=== PATIENT | male | born 1980 | race Caucasian/White ===

== ENCOUNTER 2024-06-19 22:25 | Emergency (ER) | payer OTHER ==
[2024-06-19] MEDS ORDERED: NA CHLORIDE 0.9% 1,000 ML ONE (23:42)
[2024-06-20 00:17] LABS: Absolute Eosinophils 0.6 K/uL (0-0.5); Absolute Lymphocytes (CBC) 1.7 K/uL (0.7-4.9); Absolute Monocytes 1.1 K/uL (0.1-1.3); Absolute Neutrophil 6.5 K/uL (1.8-8.0); Basophils % 0.1 % (0-1.3); Eosinophils % 6.1 % (0-4.4); Hemoglobin 16.1 g/dL (13.6-17.9); Lymphocytes % 16.8 % (15.3-44.8); MCH 30.3 pg (27.0-35.0); MCHC 33.4 g/dL (32.0-36.0); MCV 90.6 fL (80-100); MPV 9.8 fL (7.6-11.3); Monocytes % 11.5 % (3.3-12.3); Neutrophils % 65.5 % (41.7-73.7); Nucleated Red Blood Cells % 0.4 % (0-0); Platelets 231 thou/uL (152-406); Red Cell Distribution Width 14.7 % (12.1-15.2)
[2024-06-20 00:20] LABS: PT Prothrombin Time 11.5 SECONDS (9.4-12.5); PTT, Activated Partial Thromb 32.9 SECONDS (24.3-36.9); Protime INR 1.03
[2024-06-20 00:27] LABS: Albumin 3.3 g/dL (3.4-5.0); Albumin/Globulin Ratio 0.8 (1.1-1.8); Bilirubin Total 1.2 mg/dL (0.2-1.0); Globulin 3.9 g/dL (2.3-3.5); Protein, Total 7.2 g/dL (6.4-8.2)
[2024-06-20 00:34] LABS: Specific Gravity 1.028 (1.005-1.030); Sqamous Epithelial None Seen /HPF (None Seen); Urine Bacteria None Seen /HPF (<20); Urine Bilirubin NEGATIVE (Negative); Urine Blood Negative (Negative); Urine Clarity Clear (Clear); Urine Color Yellow (Yellow); Urine Culture Reflex Order NOT NEEDED; Urine Glucose NEGATIVE (Negative); Urine Ketones NEGATIVE (Negative); Urine Microscopic Reflex YN ORDER UMIC; Urine Mucus Slight /HPF (None Seen); Urine Nitrite NEGATIVE (Negative); Urine Protein TRACE (Negative); Urine RBC None Seen /HPF (None Seen); Urine Urobilinogen Normal (Normal); Urine WBC <5 /HPF (<5); Urine pH 6.5 (5.0-7.0)
[2024-06-20] MEDS ORDERED: MORPHINE 4 MG/ML SYR ONE ×2 (00:51→03:20)
[2024-06-20] MEDS ORDERED: ONDANSETRON 4 MG/2 ML VIAL ONE ×2 (00:51→03:19)
--- NOTE | 2024-06-20 02:28 | ER ---
Nurse's Notes [facility] Name: Miguel Rosado Age: 43 yrs Sex: Male : 1980 Arrival Date: 06/19/2024 Time: 22:25 Bed 16 Private MD: Diagnosis: Small Bowel Obstruction;Recent Cholecystectomy w/ Dr. Wise Presentation: 06/19 22:46 Chief complaint: Patient states: Had a cholecystectomy at [facility] by ss Dr. Wise on Wednesday. Pt reports the next day he has been experiencing abdominal bloating, gas pain and constipation and feels as if he may have some kind of blockage. Also reports low grade fever. 600 mg Ibuprofen last taken at 2029. Coronavirus screen: Client denies travel out of the [place] in the last 14 days. Ebola Screen: Patient denies exposure to infectious person. Patient denies travel to an Ebola-affected area in the 21 days before illness onset. Initial Sepsis Screen: Does the patient meet any 2 criteria? No. Patient's initial sepsis screen is negative. Does the patient have a suspected source of infection? No. Patient's initial sepsis screen is negative. Risk Assessment: Do you want to hurt yourself or someone else? Patient reports no desire to harm self or others. Onset of symptoms was June 17, 2024. 22:46 Method Of Arrival: Ambulatory ss 22:46 Acuity: NAINA 3 ss Triage Assessment: 22:48 General: Appears uncomfortable, Behavior is calm, cooperative. Pain: Complains of pain ss in abdomen Pain currently is 3 out of 10 on a pain scale. Neuro: Level of Consciousness is awake, alert, obeys commands, Oriented to person, place, time, situation. Respiratory: Airway is patent Respiratory effort is even, unlabored, Respiratory pattern is regular, symmetrical. GI: Abdomen is round distended. GI: Reports bloating, constipation, diarrhea, gaseousness. Derm: Skin is intact, is healthy with good turgor, Skin is pink, warm \T\ dry. normal. Historical: - Allergies: 22:48 No Known Allergies; ss - Home Meds: 22:48 Omeprazole [Active]; allopurinol Oral [Active]; ss - PMHx: 22:48 Gout; GERD; ss - PSHx: 22:48 Cholecystectomy; back sx; ss - Immunization history:: Client reports receiving the 2nd dose of the Covid vaccine. - Infectious Disease History:: Denies. - Social history:: Smoking status: Patient denies any tobacco usage or history of. Screenin/10 00:04 [facility] ED Fall Risk Assessment (Adult) History of falling in the last 3 months, al5 including since admission No falls in past 3 months (0 pts) Confusion or Disorientation No (0 pts) Intoxicated or Sedated No (0 pts) Impaired Gait No (0 pts) Mobility Assist Device Used No (0 pt) Altered Elimination No (0 pt) Score/Fall Risk Level 0 - 2 = Low Risk Oriented to surroundings, Maintained a safe environment, Hourly rounding (assess needs \T\ fall precautionary measures) done. Abuse screen: Denies threats or abuse. Denies injuries from another. Nutritional screening: No deficits noted. Tuberculosis screening: No symptoms or risk factors identified. Assessment: 00:05 General: Appears in no apparent distress. uncomfortable, Behavior is calm, cooperative. al5 Pain: Complains of pain in abdomen Pain currently is 6 out of 10 on a pain scale. Neuro: Level of Consciousness is awake, alert, obeys commands, Oriented to person, place, time, situation. Cardiovascular: Capillary refill < 3 seconds Patient's skin is warm and dry. Respiratory: Airway is patent Respiratory effort is even, unlabored, Respiratory pattern is regular, symmetrical. GI: Abdomen is round distended, Abdomen is tender to palpation X 4 quads. Reports lower abdominal pain, upper abdominal pain, bloating, diarrhea, nausea. : No signs and/or symptoms were reported regarding the genitourinary system. EENT: No signs and/or symptoms were reported regarding the EENT system. Derm: Skin is intact, Skin is pink, warm \T\ dry. normal. Musculoskeletal: No signs and/or symptoms reported regarding the musculoskeletal system. 01:15 Reassessment: Patient appears in no apparent distress at this time. Patient and/or al5 family updated on plan of care and expected duration. Pain level reassessed. Patient is alert, oriented x 3, equal unlabored respirations, skin warm/dry/pink. pain decreased. 02:30 Reassessment: Patient appears in no apparent distress at this time. No changes from al5 previously documented assessment. Patient and/or family updated on plan of care and expected duration. Pain level reassessed. Patient is alert, oriented x 3, equal unlabored respirations, skin warm/dry/pink. 02:47 Reassessment: initiated transfer with [facility]. Spoke with Heike, Transfer ss coordinator. 03:10 Reassessment: transfer accepted by Dr. Allred to [facility]. ER to ER. ss 03:37 Reassessment: Report given to PIOTR Tamayo at [facility]. 04:20 Reassessment: Patient appears in no apparent distress at this time. No changes from al5 previously documented assessment. Patient and/or family updated on plan of care and expected duration. Pain level reassessed. Patient is alert, oriented x 3, equal unlabored respirations, skin warm/dry/pink. Vital Signs: 06/19 22:45 BP 125 / 80; Pulse 90; Resp 18; Pulse Ox 94% on R/A; al5 22:46 BP 136 / 92; Pulse 102; Resp 18; Temp 97.8(O); Pulse Ox 96% ; Weight 120.2 kg; Height 6 ss ft. 3 in. ; Pain 3/10; 23:00 BP 109 / 83; Pulse 102; Resp 18; Pulse Ox 94% on R/A; al5 06/20 00:00 BP 117 / 84; Pulse 87; Resp 18; Pulse Ox 95% on R/A; al5 00:30 BP 116 / 89; Pulse 87; Resp 18; Pulse Ox 96% on R/A; al5 01:05 BP 137 / 91; Pulse 97; Resp 18; Pulse Ox 95% on R/A; al5 01:30 BP 121 / 88; Pulse 88; Resp 18; Pulse Ox 94% on R/A; al5 02:00 BP 131 / 85; Pulse 87; Resp 18; Pulse Ox 95% on R/A; al5 02:45 BP 140 / 100; Pulse 99; Resp 20; Pulse Ox 97% on R/A; al5 03:30 BP 128 / 94; Pulse 91; Resp 21; Pulse Ox 96% on R/A; al5 06/19 22:46 Body Mass Index 33.12 (120.20 kg, 190.5 cm) ss 22:46 Pain Scale: Adult ED Course: 06/19 22:27 Patient arrived in ED. im 22:27 Sabiha Nicole PA[facility]C [facility]. sb4 22:27 Jed Pinon MD is Attending Physician. sb4 22:48 Triage completed. ss 22:48 Arm band placed on right wrist. ss 23:04 Jael Leahy, PIOTR is Primary Nurse. al5 06/20 00:03 Blood Culture Adult (2) Sent. vk 00:03 CBC with Diff Sent. vk 00:03 CMP Sent. vk 00:03 Lactate w/ 2H reflex if indic. Sent. vk 00:03 Protime (+inr) Sent. vk 00:03 Ptt, Activated Sent. vk 00:03 Urinalysis w/ reflexes Sent. vk 00:04 Patient has correct armband on for positive identification. Placed in gown. Bed in low al5 position. Call light in reach. Side rails up X2. Provided Education on: processes and procedures. 00:04 No provider procedures requiring assistance completed. Inserted saline lock: 20 gauge al5 in left antecubital area, using aseptic technique. Blood collected. Flushed with 10 mL NS. 01:07 CT Abd/Pelvis - IV Contrast Only In Process Unspecified. EDMS 01:16 Blood Culture Adult (2) Sent. al5 03:33 PIOTR Bush initiated transfer with Yuri \T\ [facility] ced \[id number]. Pt was auto accepted to [facility] by Dr. Verónica Allred\T\[id number]. [facility] will transfer pt. 03:37 number for nurse to nurse report [phone]. [facility] 04:20 NGT: inserted 16 Fr. via left nare. verified placement of air over stomach, verified al5 return of gastric contents, to intermittent suction. Returned bile. Amount of gastric contents removed by suction 300ml. Patient tolerated poorly. patient given ativan IV and lidocaine mucous membrane viscous to help ease discomfort and anxiety. 05:27 Patient transferred, IV remains in place. al5 Administered Medications: 00:04 Drug: NS 0.9% IV 1000 ml IV at 1 bolus Per protocol; 1000 mL bolus Route: IV; Rate: 1 al5 bolus; Site: left antecubital; 03:37 Follow up: Response: No adverse reaction; IV Status: Completed infusion; IV Intake: al5 1000ml 00:55 Drug: Ondansetron IVP 4 mg IVP once; over 2 minutes Route: IVP; Site: left antecubital; al5 01:16 Follow up: Response: No adverse reaction; Nausea is decreased al5 00:56 Drug: morphine IVP or IV 4 mg IVP once over 4 mins Route: IVP; Infused Over: 4 mins; al5 Site: left antecubital; 01:16 Follow up: Response: No adverse reaction; Pain is decreased al5 03:38 Drug: Lidocaine Mucous Membrane Gel 2 % 1 ea 15 ml Mucous Membrane once Volume: 15 ml; al5 Route: Mucous Membrane; 03:40 Drug: morphine IVP or IV 4 mg IVP once over 4 mins Route: IVP; Infused Over: 4 mins; al5 Site: left antecubital; 04:27 Follow up: Response: No adverse reaction; Pain is decreased; overall general pain is al5 decreased 03:41 Drug: Ondansetron IVP 4 mg IVP once; over 2 minutes Route: IVP; Site: left antecubital; al5 04:26 Follow up: Response: No adverse reaction; Nausea unchanged al5 04:11 Drug: Ativan IVP 1 mg IVP once Route: IVP; Site: left antecubital; al5 05:28 Follow up: Response: No adverse reaction; Anxiety decreased al5 04:12 Drug: Viscous Lidocaine Mucous Membrane Liquid (4 %) 5 ml Mucous Membrane once {Note: ss Pt swallowed for NG tube discomfort. .} Route: Mucous Membrane; 05:28 Follow up: Response: No adverse reaction; Pain is decreased al5 Medication: 00:04 VIS not applicable for this client. al5 Intake: 03:37 IV: 1000ml; Total: 1000ml. al5 Outcome: 02:27 ER care complete, transfer ordered by . ec2 05:27 Transferred by ground EMS Note: transferred to [facility] al5 05:27 Condition: stable 05:27 Instructed on the need for transfer, 05:28 Patient left the ED. al5 Signatures: Dispatcher [employer] Rachelle Zelaya RN RN ss Sabiha Nicole, PA-C PA-C sb4 Jayne Toth Edwin, MD MD ec2 Rhonda Angela Vivian vk Langhorst, Amanda, RN RN al5
--- NOTE | 2024-06-20 02:28 | EDPHYS ---
Physician Documentation [facility] Name: Miguel Rosado Age: 43 yrs Sex: Male : 1980 Arrival Date: 06/19/2024 Time: 22:25 Bed 16 Private MD: ED Physician Jed Pinon HPI: 06/19 23:07 This 43 yrs old Male presents to ER via Ambulatory with complaints of Fever, sb4 Constipation, Abdominal Pain, Gallbladder surgery 06/16/24. 23:07 Patient states that he underwent a routine elective laparoscopic cholecystectomy in [address] Wise 3 days ago for gallstones. States that the surgery was successful and uncomplicated. He was discharged with a prescription for Tylenol with codeine. He states that he has been taking stool softeners to prevent any constipation. However, he states that he has not had a solid bowel movement since the surgery. States that he finally had some episodes of diarrhea this morning but feels that his abdomen is very bloated and that he might have some sort of blockage. Additionally, he states that he had a low-grade fever of 100. Historical: - Allergies: 22:48 No Known Allergies; ss - Home Meds: 22:48 Omeprazole [Active]; allopurinol Oral [Active]; ss - PMHx: 22:48 Gout; GERD; ss - PSHx: 22:48 Cholecystectomy; back sx; ss - Immunization history:: Client reports receiving the 2nd dose of the Covid vaccine. - Infectious Disease History:: Denies. - Social history:: Smoking status: Patient denies any tobacco usage or history of. ROS: 23:07 Cardiovascular: Negative for chest pain, palpitations, and edema, sb4 23:07 Constitutional: Positive for fever, 23:07 Abdomen/GI: Positive for abdominal pain, constipation, abdominal cramps, abdominal distension, 23:07 All other systems are negative, Exam: 23:10 Head/Face: Normocephalic, atraumatic. Eyes: Extra-ocular motions intact. Periorbital sb4 areas with no swelling, redness, or edema. ENT: Mucous membranes moist. Respiratory: Lungs have equal breath sounds bilaterally, clear to auscultation and percussion. No rales, rhonchi or wheezes noted. No increased work of breathing, no retractions or nasal flaring. Skin: Warm, dry with normal turgor. Normal color with no rashes, no lesions, and no evidence of cellulitis. 23:10 Constitutional: The patient appears alert, awake, uncomfortable, 23:10 Cardiovascular: Rate: tachycardic, Rhythm: regular, 23:10 Abdomen/GI: Inspection: distension, scar(s), are noted in the right upper quadrant, left upper quadrant and right lower quadrant, laparoscopic incisions healing with minimal erythema, Bowel sounds: normal, Palpation: moderate abdominal tenderness, in the umbilical area, Vital Signs: 22:45 BP 125 / 80; Pulse 90; Resp 18; Pulse Ox 94% on R/A; al5 22:46 BP 136 / 92; Pulse 102; Resp 18; Temp 97.8(O); Pulse Ox 96% ; Weight 120.2 kg; Height 6 ss ft. 3 in. ; Pain 12/18; 23:00 BP 109 / 83; Pulse 102; Resp 18; Pulse Ox 94% on R/A; al5 06/20 00:00 BP 117 / 84; Pulse 87; Resp 18; Pulse Ox 95% on R/A; al5 00:30 BP 116 / 89; Pulse 87; Resp 18; Pulse Ox 96% on R/A; al5 01:05 BP 137 / 91; Pulse 97; Resp 18; Pulse Ox 95% on R/A; al5 01:30 BP 121 / 88; Pulse 88; Resp 18; Pulse Ox 94% on R/A; al5 02:00 BP 131 / 85; Pulse 87; Resp 18; Pulse Ox 95% on R/A; al5 02:45 BP 140 / 100; Pulse 99; Resp 20; Pulse Ox 97% on R/A; al5 03:30 BP 128 / 94; Pulse 91; Resp 21; Pulse Ox 96% on R/A; al5 06/19 22:46 Body Mass Index 33.12 (120.20 kg, 190.5 cm) ss 22:46 Pain Scale: Adult ss MDM: 06/19 22:42 Patient medically screened. sb4 06/20 02:26 Data reviewed: vital signs. ED course: CT abdomen pelvis shows high-grade small bowel ec2 obstruction. Will place nasogastric tube. Patient with recent surgery at [facility], will transfer accordingly. For continuation of care.. 06/19 23:00 Order name: Blood Culture Adult (2) [facility] 06/19 23:00 Order name: CBC with Diff; Complete Time: 00:23 [facility] 06/19 23:00 Order name: CMP; Complete Time: 00:28 [facility] 06/19 23:00 Order name: Lactate w/ 2H reflex if indic.; Complete Time: 00:39 [facility] 06/19 23:00 Order name: Protime (+inr); Complete Time: 00:23 [facility] 06/19 23:00 Order name: Ptt, Activated; Complete Time: 00:23 [facility] 06/19 23:00 Order name: Urinalysis w/ reflexes; Complete Time: 00:39 [facility] 06/19 23:00 Order name: Lipase; Complete Time: 00:28 [facility] 06/19 23:00 Order name: CT Abd/Pelvis - IV Contrast Only [facility] 06/19 23:00 Order name: Cardiac monitoring; Complete Time: 00:03 [facility] 06/19 23:00 Order name: IV Saline Lock - Large Bore; Complete Time: 00:03 [facility] 06/19 23:00 Order name: Labs collected and sent; Complete Time: 00:03 [facility] 06/19 23:00 Order name: O2 Per Protocol; Complete Time: 00:03 [facility] 06/19 23:00 Order name: O2 Sat Monitoring; Complete Time: 00:03 [facility] 06/19 23:00 Order name: Vital Signs; Complete Time: 00:03 4 06/20 02:26 Order name: Nasogastric Tube; Complete Time: 04:12 ec2 Administered Medications: 00:04 Drug: NS 0.9% IV 1000 ml IV at 1 bolus Per protocol; 1000 mL bolus Route: IV; Rate: 1 al5 bolus; Site: left antecubital; 03:37 Follow up: Response: No adverse reaction; IV Status: Completed infusion; IV Intake: al5 1000ml 00:55 Drug: Ondansetron IVP 4 mg IVP once; over 2 minutes Route: IVP; Site: left antecubital; al5 01:16 Follow up: Response: No adverse reaction; Nausea is decreased al5 00:56 Drug: morphine IVP or IV 4 mg IVP once over 4 mins Route: IVP; Infused Over: 4 mins; al5 Site: left antecubital; 01:16 Follow up: Response: No adverse reaction; Pain is decreased al5 03:38 Drug: Lidocaine Mucous Membrane Gel 2 % 1 ea 15 ml Mucous Membrane once Volume: 15 ml; al5 Route: Mucous Membrane; 03:40 Drug: morphine IVP or IV 4 mg IVP once over 4 mins Route: IVP; Infused Over: 4 mins; al5 Site: left antecubital; 04:27 Follow up: Response: No adverse reaction; Pain is decreased; overall general pain is al5 decreased 03:41 Drug: Ondansetron IVP 4 mg IVP once; over 2 minutes Route: IVP; Site: left antecubital; al5 04:26 Follow up: Response: No adverse reaction; Nausea unchanged al5 04:11 Drug: Ativan IVP 1 mg IVP once Route: IVP; Site: left antecubital; al5 05:28 Follow up: Response: No adverse reaction; Anxiety decreased al5 04:12 Drug: Viscous Lidocaine Mucous Membrane Liquid (4 %) 5 ml Mucous Membrane once {Note: ss Pt swallowed for NG tube discomfort. .} Route: Mucous Membrane; 05:28 Follow up: Response: No adverse reaction; Pain is decreased al5 Disposition: 02:26 I agree with the assessment and plan of care. I reviewed the patient's care provided by ec2 Advanced Practice Provider \T\ agree w/ the diagnosis \T\ care plan. I personally saw the pt \T\ performed a substantive portion of the visit, incldng all aspects of the (History/Exam/Medical Decision Making). Disposition Summary: 06/20/24 02:27 Transfer Ordered Notes: Transfer Location: [facility] System ec2 Reason: Higher level of care ec2 Condition: Stable ec2 Problem: new ec2 Symptoms: have improved ec2 Accepting Physician: Dr. Wise, surgery (06/20/24 05:28) al5 Diagnosis - Small Bowel Obstruction ec2 - Recent Cholecystectomy w/ Dr. Wise ec2 Forms: - Medication Reconciliation Form ec2 - SBAR form ec2 Signatures: Dispatcher [employer] Rachelle Zelaya RN RN ss Sabiha Nicole, PAJacekC PAJacekC [email or web address] Jed Pinon MD MD ec2 Jael Leahy RN RN al5 Corrections: (The following items were deleted from the chart) 00:03 09 23:00 Accucheck ordered. sb4 vk 06/20 00:25 06/19 23:07 Patient states that he had a routine elective laparoscopic cholecystectomy sb4 3 days ago for gallstones. States that the surgery was successful and uncomplicated. He was discharged with prescriptions for Tylenol with codeine. He states that he has been taking stool softeners to prevent any constipation. However, he states that he has not had a solid bowel movement since the surgery. States that he finally had some episodes of diarrhea this morning but feels that his abdomen is very bloated and that he might have some sort of blockage. Additionally, he states that he had a low-grade fever of 100. sb4 06/20 00:26 06/19 23:07 Patient states that he underwent a routine elective laparoscopic sb4 cholecystectomy in [place] by Dr. Wise 3 days ago for gallstones. States that the surgery was successful and uncomplicated. He was discharged with prescriptions for Tylenol with codeine. He states that he has been taking stool softeners to prevent any constipation. However, he states that he has not had a solid bowel movement since the surgery. States that he finally had some episodes of diarrhea this morning but feels that his abdomen is very bloated and that he might have some sort of blockage. Additionally, he states that he had a low-grade fever of 100. sb4 06/20 02:27 02:27 Dr. Wise, surgery ec2 ec2 05:28 02:27 Dr. Wise, surgery ec2 al5
[2024-06-20] MEDS ORDERED: LIDOCAINE VISCOUS 2% 10ML ORAL SOLN ONE ×2 (03:20→04:05)
[2024-06-20] MEDS ORDERED: LORazepam 2 MG/ML VIAL ONE (04:07)
[2024-06-20 06:00] VITALS: TEMP 97.8
[2024-06-20 06:13] VITALS: BP 128/94; O2SAT 96
--- NOTE | 2024-06-20 14:56 | RAD REPORT ---
EXAM DESCRIPTION: CT - Abdomen Pelvis W Contrast - 06/20/2024 6:26 am CLINICAL HISTORY: Post cholecystectomy, fever, abdominal pain, fever. COMPARISON: None. TECHNIQUE: CT ABDOMEN PELVIS WITH IV CONTRAST on 06/19/2024 11:00 PM CDT This exam was performed according to our departmental dose-optimization program, which includes autom ated exposure control, adjustment of the mA and/or kV according to patient size and/or use of iterati ve reconstruction technique. FINDINGS: There is bibasilar atelectasis and scarring. Abdomen: The liver is normal in appearance. There is no biliary dilatation. Cholecystectomy was perfo rmed. The pancreas and spleen are normal in appearance. The adrenal glands and kidneys are unremarkab le. Abdominal aorta is normal in course and caliber without aneurysm. There is no free air. There is no r etroperitoneal adenopathy. Pelvis: There is severe distal colonic diverticulosis. There are multiple dilated small bowel loops t hroughout the abdomen. Distal small bowel is decompressed. Urinary bladder is unremarkable. There is small amount of free pelvic fluid. Appendix is normal. Skeleton: There are no acute osseous findings. No suspicious bony lesions. IMPRESSION: Developing high-grade small bowel obstruction. Electronically signed by: Scotty Dukes MD 06/20/2024 02:21 AM CDT RP Due to temporary technical issues with the PACS/Fluency reporting system, reports are being signed by the in house radiologists without review as a courtesy to insure prompt reporting. The interpreting radiologist is fully responsible for the content of the report.
== END 2024-06-20 05:28 | disposition short-term general hospital (02) ==
LOC: ER 22:25
DX: K91.30 Postprocedural intestinal obstruction, unspecified as to partial versus complete (principal); Z90.49 Acquired absence of other specified parts of digestive tract
CPT/HCPCS: 96361; 87040 ×2; 85025; 81001; 36415; 85610; 83605; 85730; 83690; 80053; 74177; 96375; 96374; 99285; Q9967; J2405 ×2; J7030